=== PATIENT | female | born 1985 | race Caucasian/White ===

== ENCOUNTER 2019-09-20 08:50 | Inpatient (IN) | payer OTHER ==
[2019-09-20] VITALS (7 sets, daily range): BP systolic 102–155; BP diastolic 60–86
[~2019-09-20] VITALS: Ht 170.2 cm; Wt 62.5 kg
[~2019-09-20 08:50] MED LIST: CHLORDIAZEPOXID25 M1 PO
[2019-09-20 09:44] LABS: ABSOLUTE NEUTROPHILS 2.9 thou/uL (1.4-8.2); BASOPHILS 0.6 % (0.0-2.0); HEMATOCRIT 42.2 % (37.0-47.0); HEMOGLOBIN 13.8 gm/dL (12.0-15.0); LYMPHOCYTES 38.3 % (24.0-44.0); MCHC 32.6 g/dL (28.0-37.0); MONOCYTES 4.4 % (1.0-8.0); PLATELET COUNT 269 thou/uL (150-400); POLYS 56.7 % (36.0-66.0); RBC 4.59 mil/uL (4.20-5.00); RDW 18.4 % (10.5-14.5); WBC 5.2 thou/uL (4.0-11.0)
[2019-09-20 09:53] LABS: ANION GAP 26 mmol/L (7-16); BUN 14 mg/dL (7-18); CALCIUM 8.9 mg/dL (8.5-10.1); CHLORIDE 95 mmol/L (98-107); CO2 13 mmol/L (21-32); CREATININE 0.8 mg/dL (0.6-1.0); GLUCOSE 50 mg/dL (74-106); POTASSIUM 4.3 mmol/L (3.5-5.1)
[2019-09-20 09:59] LABS: SODIUM 134 mmol/L (136-145)
[2019-09-20 10:03] LABS: ALBUMIN 4.5 g/dL (3.4-5.0); LIPASE 35 U/L (73-393); MAGNESIUM 1.8 mg/dL (1.8-2.4); SGOT 52 U/L (15-37); SGPT 20 U/L (30-65); TOTAL BILIRUBIN 0.4 mg/dL (0.2-1.0); TOTAL PROTEIN 8.4 g/dL (6.4-8.2); TROPONIN-I <0.06 ng/mL (<0.06)
[2019-09-20] MEDS ORDERED: SERTRALINE HCL100 MG PO (10:29)
[2019-09-20] MEDS ORDERED: BUSPIRONE HCL10 MG PO (10:29)
[2019-09-20] MEDS ORDERED: INDERAL LA120 M1 PO (10:30)
[2019-09-20] MEDS ORDERED: TRAZODONE HCL100 MG PO (10:30)
[2019-09-20] MEDS ORDERED: DOXEPIN 10 MG C10 MG PO (10:31)
[2019-09-20] MEDS ORDERED: FOLIC ACID1 MG PO (10:32)
[2019-09-20] MEDS ORDERED: PROTONIX40 M2 PO (10:32)
[2019-09-20 12:24] LABS: URINE BILIRUBIN NEGATIVE (Negative); URINE BLOOD NEGATIVE (Negative); URINE CLARITY CLEAR; URINE COLOR YELLOW; URINE GLUCOSE-RANDOM* 2+ (Negative); URINE KETONES 2+ (Negative); URINE LEUKOCYTES-REFLEX NEGATIVE (Negative); URINE NITRITE-REFLEX NEGATIVE (Negative); URINE PROTEIN (DIPSTICK) NEGATIVE (Negative); URINE SPECIFIC GRAVITY >= 1.030 (1.005-1.035); URINE UROBILINOGEN 0.2 E.U./dl (0.2-1.0)
[2019-09-20 12:35] LABS: AMP/METHAMP Negative (Negative); BARBITURATES Negative (Negative); BENZODIAZEPINES POSITIVE (Negative); COCAINE Negative (Negative); METHADONE Negative (Negative); OPIATES Negative (Negative); PCP Negative (Negative)
--- NOTE | 2019-09-20 13:46 | NUR ---
ATTEMPTED TO CALL REPORT. NURSE NOT AVAILABLE AND WILL CALL BACK
--- NOTE | 2019-09-20 15:54 | EKG ---
[facility] [place] [address] ELECTROCARDIOGRAM REPORT Name: NAE CAMACHO Room #: 202-P ADM IN M.R.#: [id number] Admission: 09/20/19 Attend Phys: Marco Antonio Taveras MD Discharge: Date of : 85 Report #: [id number] THIS REPORT FOR: cc: FAM - Family physician unknown FAM - Family physician unknown Adán Glass MD [facility] ~ THIS REPORT FOR: //name// [facility] ED Test Date: 2019-09-20 Test Time: 09:40:43 Pat Name: NAE CAMACHO Department: Room: [facility] [place] Gender: F Laminate Floor Installer: JOHNIE : 1985 Requested By: Matthieu Ryan Order Number: [id number] MD: Adán Glass Measurements Intervals Cherry Rate: 107 P: 79 CA: 115 QRS: 67 QRSD: 90 T: -15 QT: 325 QTc: 434 Interpretive Statements Sinus tachycardia Nonspecific ST and T wave abnormality No previous ECG available for comparison Electronically Signed On 09-20-2019 15:54:04 CDT by Adán Glass [email or web address] <ELECTRONICALLY SIGNED> By: Adán Glass MD, FAC 09/20/19 1554 0940 0940 Adán Glass MD, [facility] /EPI
[2019-09-21 04:32] LABS: EOSINOPHILS 0.6 % (0.0-3.0); HEMATOCRIT 32.8 % (37.0-47.0); LYMPHOCYTES 53.4 % (24.0-44.0); MCH 30.1 pg (26.0-34.0); MCHC 33.3 g/dL (28.0-37.0); MCV 90.2 fL (80.0-100.0); MONOCYTES 5.8 % (1.0-8.0); POLYS 39.2 % (36.0-66.0); RBC 3.64 mil/uL (4.20-5.00); RDW 17.7 % (10.5-14.5); WBC 5.2 thou/uL (4.0-11.0)
[2019-09-21 04:36] LABS: PLATELET COUNT 132 thou/uL (150-400)
[2019-09-21 04:46] LABS: CREATININE 0.8 mg/dL (0.6-1.0); MAGNESIUM 1.5 mg/dL (1.8-2.4); POTASSIUM 3.6 mmol/L (3.5-5.1)
[2019-09-21 04:51] VITALS: BP 116/67
--- NOTE | 2019-09-21 05:21 | NUR ---
ASSUMED PT CARE AT 1900. PT IS ALERT AND ORIENTED. NO SIGN OF DISTRESS NOTED IN PT. DENIES ANY PAIN. [facility] PROTOCOL IN PLACE. ASSESSMENT COMPLETED AND DOCUMENTED. SCHEDULED MEDS ADMINISTERED TO PT. CONTINUE TO MONITOR PT. PT IS STABLE THROUGH THE NIGHT. NO FURTHER NEEDS AT THIS TIME
[2019-09-21 08:28] VITALS: BP 127/84
--- NOTE | 2019-09-21 10:55 | NUR ---
PT REQUESTING TO SLEEP, DID NOT GET TO SLEEP UNTIL AROUND 3 OR 4 AM.
--- NOTE | 2019-09-21 12:41 | NUR ---
pt awake, took morning meds, stating she has a slight headache but feels much better, does not want ativan or tylenol at this point.
[2019-09-21 12:56] VITALS: BP 129/93
[2019-09-21 17:11] VITALS: BP 142/94
--- NOTE | 2019-09-21 18:16 | NUR ---
pt sleeping most of the day, says she feels much better, iv sites rotated as right hand iv got kinked and no longer worked. right forearm iv placed with one stick no trouble, pt has asked for one dose of ativan today. pt calm and cooperative, would like to go home tomorrow.
[2019-09-21 19:42] VITALS: BP 133/90
[2019-09-21 23:00] VITALS: BP 133/90
--- NOTE | 2019-09-21 23:54 | NUR ---
ASSUMED PT CARE AT AROUND 1900, PT IS AWAKE, ALERT AND ORIENTEDX4, MAKES NEEDS KNOWN, SR ON THE MONITOR, ASSESSMENTS CHARTED, PT CONTINUES TO BE ON CIWA PROTOCOL, SCORED A 3; DENIES PAIN OR SOB, C/O DIZZINESS WHEN GETTING UP, EDUCATED TO CALL FOR NEEDS, STATES UNDERSTANDING, MEDICATIONS GIVEN PER MAR, VSS, BS STABLE, LAYING IN BED, NO DISTRESS NOTED AT THIS TIME, ATIVAN GIVEN FOR A CIWA OF 3, WILL CONTINUE TO MONITOR
[2019-09-22 03:50] VITALS: BP 138/102
[2019-09-22 09:00] VITALS: BP 116/82
[2019-09-22] MEDS ORDERED: VITAMIN B-1100 M2 PO (11:02)
[2019-09-22] MEDS ORDERED: PRENATAL PO (11:03)
[2019-09-22 11:41] VITALS: BP 116/82
--- NOTE | 2019-09-22 12:41 | NUR ---
ASSUMMED PT CARE AT APPROXIMATELY 0700. PT A&O X4. ASSESSMENT CHARTED. FALL PRECAUTIONS IN PLACE. PT DENIES HAVING CHEST PAIN. PT DENIES HAVING SOB. PT DENIES HAVING ACUTE PAIN. VITAL SIGNS STABLE. BLOOD SUGARS STABLE. PT AMBULATES STEADY/INDPENDENT. PT DISCHARGING HOME C SELF CARE. PT RECEIVED DISCHARGE EDUCATION. PT STATED UNDERSTANDING AND DENIED HAVING FURTHER QUESTIONS. CIWA SCORE 0. PT COMFORTABLE. PT DENIES HAVING FURTHER CONCERNS. I WALKED C PT OFF UNIT.
== END 2019-09-22 13:12 | disposition home or self-care (01) | DRG 897 ==
LOC: ER 08:50 → EROBS 11:47 → 2N 14:43
PROVIDERS: Emergency Medicine; Nurse Practitioner; ADMIT Internal Medicine; ATTEND Internal Medicine
DX: F10.239 Alcohol dependence with withdrawal, unspecified (principal); E87.2 Acidosis; F10.229 Alcohol dependence with intoxication, unspecified; F17.210 Nicotine dependence, cigarettes, uncomplicated; F32.9 Major depressive disorder, single episode, unspecified; E16.2 Hypoglycemia, unspecified; E83.42 Hypomagnesemia; Z79.899 Other long term (current) drug therapy
CPT/HCPCS: 10081